=== PATIENT | female | born 1990 | race Caucasian/White ===

== ENCOUNTER 2020-12-08 06:47 | Emergency (ER) | payer OTHER ==
[~2020-12-08] VITALS: Ht 160 cm; Wt 56.7 kg
[~2020-12-08 06:47] MED LIST: BENADRYL ALLERG25 MG PO; MEDROLPACK PO; MUPIROCIN22 GM TOP
[2020-12-08] MEDS ORDERED: BETAMETHASONE D15 G2 (07:17)
== END 2020-12-08 10:40 | disposition home or self-care (01) ==
LOC: ER 06:47
DX: U07.1 COVID-19 (principal); B96.0 Mycoplasma pneumoniae [M. pneumoniae] as the cause of diseases classified elsewhere

== ENCOUNTER 2022-01-09 13:39 | Emergency (ER) | payer OTHER ==
[~2022-01-09] VITALS: Ht 160 cm; Wt 58.1 kg
[~2022-01-09 13:39] MED LIST changes: +BETAMETHASONE D15 G2
== END 2022-01-09 18:35 | disposition home or self-care (01) ==
LOC: ER 13:39
DX: J32.9 Chronic sinusitis, unspecified (principal); Z88.0 Allergy status to penicillin

== ENCOUNTER → 2022-06-01 | Emergency (ER) | payer OTHER ==
[~2022-06-01] VITALS: Ht 160 cm; Wt 59.0 kg
== END | disposition home or self-care (01) ==
LOC: ER 22:57
DX: M54.9 Dorsalgia, unspecified (principal); Z88.0 Allergy status to penicillin

== ENCOUNTER 2022-12-02 21:32 | Emergency (ER) | payer OTHER ==
[~2022-12-02] VITALS: Ht 157.5 cm; Wt 55.8 kg
== END 2022-12-03 01:14 | disposition home or self-care (01) ==
LOC: ER 21:32
DX: K64.8 Other hemorrhoids (principal)

== ENCOUNTER 2024-07-22 22:05 | Emergency (ER) | payer OTHER ==
[~2024-07-22] VITALS: Ht 160 cm; Wt 59.0 kg
[2024-07-22] MEDS ORDERED: GUAIFEN/DEXTROMETHORPHAN/PE 10 ML BLIST.PACK PO ONE (23:00)
[2024-07-22] MEDS ORDERED: GUAIFENESIN/DEXTROMETHORPHAN 100MG/10ML BLIST.PACK PO ONE (23:12)
[2024-07-22 23:37] LABS: HEMATOCRIT 37.2 % (36.0-45.00); HEMOGLOBIN 12.6 g/dL (12.0-15.00); MEAN CELL VOLUME 90.6 fL (80.00-100.00); MEAN CORPUSCULAR HEMOGLOBIN 30.7 pg (27.00-32.0); MEAN CORPUSCULAR HGB CONC 33.9 g/dl (32.0-36.0); PLATELET COUNT 256 K/uL (150-450); RED CELL DISTRIBUTION WIDTH 12.9 % (11.5-14.5)
[2024-07-23] MEDS ORDERED: ZITHROMAX TRI-500 MG PO (00:09)
[2024-07-23] MEDS ORDERED: ACETAMINOPHEN500 M1 PO (00:09)
[2024-07-23] MEDS ORDERED: GILTUSS COUGH-118 M1 PO (00:09)
== END 2024-07-23 00:28 | disposition home or self-care (01) ==
LOC: ER 22:08
PROVIDERS: Preventive Medicine Public Health & General Preventive Medicine
DX: J06.9 Acute upper respiratory infection, unspecified (principal); L30.8 Other specified dermatitis; Z88.0 Allergy status to penicillin; Z20.822 Contact with and (suspected) exposure to COVID-19